=== PATIENT | female | born 1985 | race Hispanic/Latino ===

== ENCOUNTER 2023-05-11 18:40 | Emergency (ER) | payer BC ==
[2023-05-11] VITALS (9 sets, daily range): BP systolic 88–116; BP diastolic 59–76
[~2023-05-11] VITALS: Ht 157.5 cm; Wt 75.0 kg
[~2023-05-11 18:40] MED LIST: BACTRIM DS1 TAB PO; DIFLUCAN150 MG PO; KEFLEX500 MG PO; METRONIDAZOL0.75 % VA; NITROFURANTN100 MG PO; OMNICEF300 M1 PO; TYLOPHEN500 MG PO
[2023-05-11 20:01] LABS: BASO% 0.3 % (0-3); HEMATOCRIT 40.3 % (37.0-47.0); HEMOGLOBIN 13.1 g/dl (12.0-16.0); IMMATURE GRANULOCYTES 0.2 % (0.0-5.0); LYMPH% 17.7 % (15-41); MEAN CELL VOLUME 90.6 fL CALC (80.0-100.0); MEAN CORPUSCULAR HGB 29.4 pG CALC (26.0-32.0); MEAN CORPUSCULAR HGB CONC 32.5 g/dL CAL (32.0-36.0); MONO% 6.4 % (2-13); NEUT# 9.28 thou/uL (2.00-7.15); NEUT% 74.4 % (42-76); RED BLOOD COUNT 4.45 mill/uL (4.20-5.60); RED CELL DISTRI WIDTH 13.2 % (11.5-15.5)
[2023-05-11 20:17] LABS: ALBUMIN 4.6 g/dL (3.2-5.0); ALKALINE PHOSPHATASE 69 u/l (38-126); ANION GAP 11 (6-22 (CALC)); BILIRUBIN, TOTAL 0.4 mg/dL (0.02-1.3); BUN 15 mg/dL (7-17); BUN/CREATININE RATIO 22 (12-20 (CALC)); CARBON DIOXIDE 27 mmol/l (22-30); CHLORIDE 104 mmol/l (95-108); CREATININE 0.7 mg/dL (0.5-1.0); GFR FOR AFR.AMER. > 60 ML/MIN (>=60 (CALC)); GFR OTHER RACES > 60 ML/MIN (>=60 (CALC)); SGOT/AST 34 u/l (14-36); SODIUM 138 mmol/l (137-146); TOTAL PROTEIN 8.3 g/dL (6.3-8.2)
[2023-05-11 20:19] LABS: D-DIMER 0.21 mg/L (0.19-0.60)
[2023-05-11 20:26] LABS: ACT PARTIAL THROMBO TIME 28.3 SECONDS (20.0-32.5); INTERNATIONAL NORMALIZED RATIO 1.1 RATIO (0.7-1.3); PROTHROMBIN TIME 10.4 SECONDS (9.0-12.5)
[2023-05-11] MEDS ORDERED: TORADOL PO (20:54)
== END 2023-05-11 21:19 | disposition home or self-care (01) | DRG 313 ==
LOC: ED 18:40
PROVIDERS: Family Medicine
DX: R07.89 Other chest pain (principal)